=== PATIENT | female | born 1980 | race Caucasian/White ===

== ENCOUNTER 2017-01-22 00:52 | Emergency (ER) | payer OTHER ==
[~2017-01-22] VITALS: Ht 175.3 cm; Wt 81.8 kg
[2017-01-22 01:04] VITALS: BP 106/74; PULSE 80; RESP 18; O2SAT 100
[2017-01-22 01:45] VITALS: BP 101/82; PULSE 76; RESP 20; O2SAT 100
--- NOTE | 2017-01-22 01:59 | ED.REPORT ---
HPI-Overdose/Alcohol Toxicity Date of Service Jan 22, 2017 ED Provider: Tirso Lopez Pt is a 36 year old female with a history of anxiety and suicidal ideations with attempts who presents to the ED after a possible overdose on Klonopin. She denies suicidal ideations at this time, and states that she did not have suicidal ideations when taking her medication. Pt reports "my life is a train wreck. I just kept taking them throughout the day, like 4 at a time for the emotional pain." Nursing Notes Stated Complaint: POSS OVERDOSE Chief Complaint: Substance Abuse Nursing Notes Reviewed: Yes Allergies: Coded Allergies: NSAIDS (Non-Steroidal Anti-Inflamma (Verified Allergy, Unknown, 01/22/17) General Time Seen by Provider: 02:00 Chief Complaint Drug overdose Hx Obtained From: Patient Arrived By: Walk-in Onset Occurred: Just prior to arrival Symptom Duration: Since onset Severity: Current: No pain currently Severity: Maximum: No pain Recent Healthcare: No recent doctor visit, No recent hospitalization Similar Sx Previous: No Risk-Overdose/Alcohol Tox )( Suicide Risk Stratification : Previous attempt RF Statements: Risk factors reviewed Past Medical History Past Medical History Anxiety Suicidal ideations with attempts Denies: Congestive heart failure, Diabetes mellitus, Hypertension Past Surgical History Smoking History Current Every Day Smoker Social History Alcohol Use: Denies alcohol use Drug Use: THC Ambulatory Status Independent Review of Systems Complete sys rev & neg: except as marked. Physical Exam Initial Vital Signs Vital Signs (First) Date Time Temp Pulse Resp B/P Pulse Ox O2 Delivery O2 Flow Rate FiO2 01/22/17 01:04 36.4 80 18 106/74 100 Room Air Initial VS: Reviewed, Vital signs normal Head / Eyes: Atraumatic, Normocephalic Neck: Supple, Full range of motion Extremities: Vascular intact, Neuro intact Skin: Warm, Dry, No cyanosis Pt was sleeping with good respiratory effort Re-Eval/Medical Decision Med Decision/Clinical Course 36-year-old female who allegedly took 45 mg of clonazepam over the last 24 hours. She has a history of overusing and abusing this medication, and has definitely become tolerant. She is alert and talkative, although she does fall asleep easily. There is no history of coingestions and she denies any self- harm or suicidal intent. Her case was discussed with Poison Control who felt that 6 hour observation would be adequate in this case. She slept during that time with normal vital signs. She was easily arousable and coherent. This was not a suicide attempt only an attempt to stop "emotional pain." She feels that the crisis of the emotional pain is over and that she can safely be discharged home. She is arranging a ride home with her mother because I do not feel that she is completely able to drive yet at this point. Source of Hx: Old records Consultation : Call Returned at: 02:20 Depot Agent: Agrees with eval, Agrees with plan Note: Consulted with Poison [employer] Assembler. He recommends 6 hours of observation. Counseled Regarding: Diagnosis, Lab results, Need for follow-up, When/why to return to ED Discharge & Departure Impression: Primary Impression: Benzodiazepine overdose Encounter type: initial encounter Injury intent: accidental or unintentional Qualified Code: T42.4X1A - Poisoning by benzodiazepines, accidental (unintentional), initial encounter )( Condition at Discharge: No danger to self, No danger to others, No suicidal ideation, No homicidal ideation Disposition: Home Discharge Condition All VS Reviewed: Yes Condition: Stable Patient Instructions: Benzodiazepine Overdose (ED) Additional Instructions: I think you understand overuse of this medication to this extent could potentially be very dangerous, even lethal. Please take your medicines as prescribed. Follow-up with your prescribing psychiatrist as soon as possible for a discussion about your emotional pain and what to do in the future. Referrals: [facility] Portions of this note were transcribed by Christa Freed. I, Dr. Lopez personally performed the history, physical exam and medical decision-making; I reviewed and confirmed the accuracy of the information in the transcribed note. Signed by: Umberto Ram, 01/22/17 and 03:50. copies to: [facility] Tirso Lopez MD Jan 22, 2017 01:59 Christa Dodge Jan 22, 2017 02:56
[2017-01-22 03:47] VITALS: BP 97/69; PULSE 82; RESP 21; O2SAT 100
[2017-01-22 06:53] VITALS: BP 102/76; PULSE 83; RESP 18; O2SAT 100
== END 2017-01-22 07:00 | disposition home or self-care (01) ==
LOC: SED 00:52
DX: T42.4X1A Poisoning by benzodiazepines, accidental (unintentional), initial encounter (principal); Y93.89 Activity, other specified; Y92.89 Other specified places as the place of occurrence of the external cause; Y99.8 Other external cause status; F41.9 Anxiety disorder, unspecified; F17.200 Nicotine dependence, unspecified, uncomplicated; Z88.8 Allergy status to other drugs, medicaments and biological substances